=== PATIENT | male | born 1995 | race African-American/Black ===

== ENCOUNTER 2022-04-16 02:16 | Emergency (ER) | payer OTHER ==
[~2022-04-16] VITALS: Ht 182.9 cm; Wt 88.1 kg
[2022-04-16 03:44] LABS: Urine Bacteria NONE SEEN /hpf (None Seen); Urine Blood Negative /uL (Negative); Urine Specific Gravity 1.018 (1.001-1.035); Urine WBC 1 /hpf (0 - 3)
[2022-04-16 07:41] VITALS: BP 136/93
== END 2022-04-16 07:46 | disposition home or self-care (01) ==
LOC: ER 02:16
DX: F12.10 Cannabis abuse, uncomplicated (principal)
CPT/HCPCS: 81001